=== PATIENT | female | born 1955 | race American Indian/Alaskan Native ===

== ENCOUNTER 2017-02-11 09:59 | Outpatient (CLI) | payer OTHER ==
--- NOTE | 2017-02-11 10:59 | XRay Report ---
BILATERAL KNEES, 2 VIEWS History: Bilateral knee pain Findings: There is normal bone mineralization. No evidence for fracture, bone lesion or large osteochondral defect. Moderate osteoarthritic changes are identified bilaterally which are most pronounced in the medial compartments. Trace to small bilateral joint effusions. Impression: Osteoarthritis.
--- NOTE | 2017-02-11 11:00 | XRay Report ---
ROUTINE CHEST, TWO VIEWS: HISTORY: Chest pain, hypertension. The trachea, heart, mediastinal contour, lung carpenter and bony thorax are unremarkable. IMPRESSION: Unremarkable chest x-ray.
--- NOTE | 2017-02-11 11:00 | XRay Report ---
LUMBOSACRAL SPINE, 3 VIEWS: History: Back pain Findings: Normal bone mineralization. There is normal height and alignment of lumbar vertebral bodies. Mild disc space narrowing is noted at L4-5 and L5-S1. Moderate to severe facet arthropathy is identified at the lowest 3 levels. No evidence for bone lesion or compression deformity. Impression: Lumbar spondylosis. No acute process noted.
== END 2017-02-11 10:00 | disposition home or self-care (01) ==
LOC: XRAY 09:59
PROVIDERS: ATTEND Internal Medicine
DX: Z02.71 Encounter for disability determination (principal); M17.0 Bilateral primary osteoarthritis of knee; M47.896 Other spondylosis, lumbar region; M54.5 Low back pain; R07.9 Chest pain, unspecified; I10 Essential (primary) hypertension
CPT/HCPCS: 71020; 72100